=== PATIENT | male | born 1935 | race Caucasian/White ===

== ENCOUNTER → 2016-12-02 | Day surgery (SDC) | payer OTHER ==
[~2016-12-02] MED LIST: ASPIRIN EC81 M1 PO; AVODART0.5 MG PO; CRESTOR10 MG PO; FOSINOPRIL SODI20 MG PO; HYDROCODON-ACE1 EAC5 PO; LATANOPROST2.5 ML OU; OMEPRAZOLE40 MG PO; PERCOCET 7.5-31 EACH PO; TRAVATAN2.5 ML OU
--- NOTE | ~2016-12-02 | EKG ---
PATIENT: YAQUELIN ROSS UNIT #: [id number] Ventricular Rate: 60 BPM Atrial Rate: 60 BPM P-R Interval: 216 ms QRS Duration: 154 ms Q-T Interval: 450 ms QTC Calculation(Bezet): 450 ms P [place]: -9 degrees Calculated R [place]: 68 degrees Calculated T [place]: 16 degrees Diagnosis Line: Sinus rhythm with 1st degree A-V block Diagnosis Line: Right bundle branch block Diagnosis Line: Abnormal ECG Diagnosis Line: When compared with ECG of 12-DEC-2015 11:59, Diagnosis Line: Premature atrial complexes are no longer Present Diagnosis Line: Right bundle branch block is now Present Diagnosis Line: Confirmed by WENDY ADRIAN MD ([id number]) on 12/02/2016 Diagnosis Line: 10:30:43 PM INTERPRETING MD: NGUYỄN HASTINGS
--- NOTE | ~2016-12-02 | OR ---
Unit #: [id number] #: [id number] Patient: YAQUELIN ROSS [id number] [address] [place], [place] [address] [id number] O MR#: [id number] NAME: YAQUELIN ROSS ROOM: Date of Procedure: 12/02/2016 Admission Date: 12/02/2016 Surgeon: Tobi Ramirez M.D. : 1935 Attending Physician: Tobi Ramirez M.D. Referring Physician: Tobi Ramirez M.D. Primary Care Physician: Jeff Nuñez M.D. OPERATIVE REPORT PREOPERATIVE DIAGNOSES Right hydronephrosis, questionable thickening in the ureter. POSTOPERATIVE DIAGNOSES Right hydronephrosis, questionable thickening in the ureter. PROCEDURES PERFORMED Cystoscopy with right ureteroscopy, retrograde and 6 x 26 double-J stent. No dangling string was left in place. HISTORY OF PRESENT ILLNESS This is an 81-year-old gentleman with right-sided flank pain, was found to have some moderate hydronephrosis and some thickening of his distal ureter. He presents at this time for cysto-ureteroscopy to rule out upper tract transitional cell cancer. Informed consent was obtained after risks and benefits were explained. DESCRIPTION OF PROCEDURE Following proper identification, the patient was taken to the operating room where general anesthetic was given by Anesthesia Service. The patient was placed in a dorsal lithotomy position. All pressure points were padded. He was prepped and draped in normal sterile fashion. I began by looking at the patient's urethra and into his bladder with the 22-[place] rigid cystoscope. Sam cystoscopy was performed. No bladder masses were seen. I then placed a Sensor wire through right ureter without any difficulty and I looked up with the rigid ureteroscope all the way to the renal pelvis. There were no masses seen in the renal pelvis. I shot a retrograde pyelogram. There was no evidence of any filling defects or any abnormalities. I looked my way out the ureter, leaving a Sensor wire in place. The patient tolerated the procedure well. He was subsequently awaken, extubated, and taken to recovery in good condition. No immediate complications. PLAN Follow up in 1 week to get his stent removed. Dictated by... Tobi Ramirez M.D. SOFY/johnathan Unit #: [id number] #: [id number] Patient: YAQUELIN ROSS TD: 12/02/2016 18:04 JOB #: [id number] OPERATIVE REPORT Page 1 of 1 X Dmitriy Ramirez MD X PROCEDURE OPERATIVE NOTE
[2016-12-02 15:11] LABS: BASOPHIL% 0.4 % (0-2.5); EOSINOPHIL# 0.1 X10e3 (0-0.7); EOSINOPHIL% 0.9 % (0.0-7.0); HEMATOCRIT 43.2 % (38.0-50.0); HEMOGLOBIN 14.5 gm/dL (13.0-16.0); LYMPHOCYTE# 1.8 X10e3 (1.0-3.5); LYMPHOCYTE% 21.4 % (17.0-45.0); MEAN CELL VOLUME 94.4 FL (83-96); MEAN CORPUSCULAR HEMOGLOBIN 31.7 PG (28-34); MEAN CORPUSCULAR HGB CONC 33.6 g/dL (30-36); MEAN PLATELET VOLUME 8.2 FL (6.5-11.5); MONOCYTE# 0.5 X10e3 (0-1.0); MONOCYTE% 6.1 % (3.0-12.0); NEUTROPHIL# 6.1 X10e3 (1.5-7.1); NEUTROPHIL% 71.2 % (40-75); PLATELET COUNT 129 X10e3 (140-420); RED BLOOD COUNT 4.58 X10e (3.90-5.60); RED CELL DISTRIBUTION WIDTH 13.1 % (11.0-15.5); WHITE BLOOD COUNT 8.6 X10e3 (4.0-10.5)
[2016-12-02 15:14] LABS: DIFF IND NO
[2016-12-02 15:36] LABS: BUN/CREATININE RATIO 17.77; CALCIUM SERUM 9.2 mg/dL (8.4-10.2); CREATININE SERUM 0.9 mg/dL (0.6-1.4); GLOM FILT RATE Estimated 78.7 mL/min (>60); POTASSIUM 4.5 mmol/L (3.5-5.1)
== END | disposition home or self-care (01) ==
LOC: CSUR 14:27
PROVIDERS: Urology
DX: N13.30 Unspecified hydronephrosis (principal); N40.1 Benign prostatic hyperplasia with lower urinary tract symptoms; R31.29 Other microscopic hematuria; R59.0 Localized enlarged lymph nodes
CPT/HCPCS: 80048; 85025; 93005; C1769; C2617; J0690; J2405; J3010

== ENCOUNTER → 2017-01-03 | Day surgery (SDC) | payer OTHER ==
--- NOTE | ~2017-01-03 | OR ---
Unit #: [id number] #: [id number] Patient: YAQUELIN ROSS [id number] [address] [place], [place] [address] [id number] O MR#: [id number] NAME: YAQUELIN ROSS ROOM: Date of Procedure: 01/03/2017 Admission Date: 01/03/2017 Surgeon: Joselito Nieves M.D. : 1935 Attending Physician: Joselito Nieves M.D. Primary Care Physician: Jeff Mesa M.D. OPERATIVE REPORT JOB NOTE: CC: DR. JEFF MESA PREOPERATIVE DIAGNOSES Abnormality on a CAT scan and right lower quadrant abdominal pain. PROCEDURE PERFORMED Colonoscopy up to cecum and terminal ileum with excellent preparation and good visualization. POSTOPERATIVE DIAGNOSES The patient had mild sigmoid and descending colon diverticulosis. Otherwise, examination normal up to cecum and terminal ileum. The quality of the prep was good. RECOMMENDATIONS Reassurance is in order. The patient was advised to use [id number] FiberCon on daily basis. SEDATION USED MAC. DESCRIPTION OF PROCEDURE Following detailed explanation of the potential risks and complications of a colonoscopy, namely perforation, bleeding, complication related to sedation, the patient was brought to GI lab and laid in the left lateral decubitus position. A digital rectal examination was performed, which was normal. Lubricated tip of the Olympus videocolonoscope was inserted through the anus and advanced under direct vision. The scope was advanced and passed up to sigmoid into descending colon. Multiple medium-sized diverticula were seen in this area. The scope was then navigated all the way up to cecum with visualization of the ileocecal valve and the appendiceal orifice. Preparation was excellent with good visualization and photodocumentation was obtained. Last few inches of the terminal ileum also visualized after intubation of the ileocecal valve and appeared normal. Successive segments of the colonic mucosa were examined upon withdrawal and appeared unremarkable. There being no polyps, mass lesions, or AVMs. Other than the diverticula seen in the left side, no other abnormalities noted. The patient did not have any hemorrhoids at anal verge. The scope was withdrawn. The patient returned to the recovery area. He tolerated the procedure without any postprocedure complications. Unit #: [id number] #: [id number] Patient: YAQUELIN ROSS Dictated by... Iliana Hagen/johnathan TD: 01/03/2017 10:03 JOB #: [id number] OPERATIVE REPORT Page 1 of 1 X Joselito Nieves MD X PROCEDURE OPERATIVE NOTE
== END | disposition home or self-care (01) ==
LOC: COPS 07:02
DX: K57.30 Diverticulosis of large intestine without perforation or abscess without bleeding (principal); N40.0 Benign prostatic hyperplasia without lower urinary tract symptoms; Z79.82 Long term (current) use of aspirin; Z79.899 Other long term (current) drug therapy